=== PATIENT | male | born 2000 | race Caucasian/White ===

== ENCOUNTER 2021-06-21 07:19 | Emergency (ER) | payer OTHER ==
[~2021-06-21] VITALS: Ht 185.4 cm; Wt 82.0 kg
[2021-06-21] MEDS ORDERED: FLUORESCEIN SODIUM 1 MG STRIP OS ONE (08:00)
[2021-06-21 08:11] VITALS: BP 124/68
[2021-06-21] MEDS ORDERED: PROPARACAINE HCL 0.5% 15 ML OPHTHALMIC SOLUTION OS ONE (08:15)
== END 2021-06-21 08:51 | disposition home or self-care (01) ==
LOC: EMS 07:22
DX: H20.9 Unspecified iridocyclitis (principal)
CPT/HCPCS: 99283

== ENCOUNTER 2021-12-09 13:34 | Emergency (ER) | payer OTHER ==
[~2021-12-09] VITALS: Ht 185.4 cm; Wt 84.1 kg
[2021-12-09] MEDS ORDERED: IBUPROFEN 800 MG TABLET PO ONE (15:45)
[2021-12-09 16:14] VITALS: BP 140/89
== END 2021-12-09 16:52 | disposition home or self-care (01) ==
LOC: EMS 13:34
DX: S20.212A Contusion of left front wall of thorax, initial encounter (principal); F17.210 Nicotine dependence, cigarettes, uncomplicated; W01.0XXA Fall on same level from slipping, tripping and stumbling without subsequent striking against object, initial encounter; Y93.89 Activity, other specified; Y92.89 Other specified places as the place of occurrence of the external cause; Y99.8 Other external cause status
CPT/HCPCS: 71101; 99283

== ENCOUNTER 2022-07-08 18:14 | Emergency (ER) | payer OTHER ==
[~2022-07-08] VITALS: Ht 185.4 cm; Wt 100.0 kg
[2022-07-08 18:22] VITALS: BP 116/71
[2022-07-08] MEDS ORDERED: ACETAMINOPHEN 500 MG TABLET PO ONE (19:30)
[2022-07-08] MEDS ORDERED: IBUPROFEN 600 MG TABLET PO ONE (19:30)
[2022-07-08] MEDS ORDERED: IBUP-2070 PO (19:40)
== END 2022-07-08 19:53 | disposition home or self-care (01) ==
LOC: EMS 18:14
DX: S93.401A Sprain of unspecified ligament of right ankle, initial encounter (principal); F17.210 Nicotine dependence, cigarettes, uncomplicated; F12.90 Cannabis use, unspecified, uncomplicated; X58.XXXA Exposure to other specified factors, initial encounter; Y93.67 Activity, basketball; Y92.89 Other specified places as the place of occurrence of the external cause; Y99.8 Other external cause status
CPT/HCPCS: 99283

== ENCOUNTER 2023-04-07 15:16 | Emergency (ER) | payer OTHER ==
[~2023-04-07] VITALS: Ht 188 cm; Wt 90.9 kg
[~2023-04-07 15:16] MED LIST: IBUP-1492 PO
[2023-04-07 15:39] VITALS: TEMP 98
[2023-04-07 17:32] VITALS: BP 118/79; PULSE 75; RESP 16
== END 2023-04-07 18:52 | disposition home or self-care (01) ==
LOC: EMS 15:20
DX: S93.402A Sprain of unspecified ligament of left ankle, initial encounter (principal); S83.92XA Sprain of unspecified site of left knee, initial encounter; F17.210 Nicotine dependence, cigarettes, uncomplicated; F12.90 Cannabis use, unspecified, uncomplicated; X50.1XXA Overexertion from prolonged static or awkward postures, initial encounter; Y93.66 Activity, soccer; Y92.89 Other specified places as the place of occurrence of the external cause; Y99.8 Other external cause status
CPT/HCPCS: 99284; 73562-TC; 73610-TC; Z7502